=== PATIENT | female | born 1990 | race Caucasian/White ===

== ENCOUNTER 2017-02-07 15:14 | Emergency (ER) | payer MEDICAID ==
[~2017-02-07] VITALS: Ht 160 cm; Wt 83.0 kg
[2017-02-07] MEDS ORDERED: IBUPROFEN 600MG TABLET PO ONE (18:45)
[2017-02-07 19:12] LABS: CLARITY URINE CLEAR (CLEAR); COLOR URINE YELLOW (YELLOW); GLUCOSE URINE NEGATIVE (NEGATIVE); KETONES URINE NEGATIVE (NEGATIVE); LEUKOCYTE ESTERASE URINE NEGATIVE (NEGATIVE); NITRITE URINE NEGATIVE (NEGATIVE); OCCULT BLOOD URINE NEGATIVE (NEGATIVE); PH URINE 6.5 (4.5-8.0); PROTEIN URINE NEGATIVE (NEGATIVE); SPECIFIC GRAVITY URINE 1.009 (1.005-1.030); UROBILINOGEN URINE 0.2 E.U./dL (0.2-1.0)
[2017-02-07 19:14] LABS: BASOPHILS % 0.4 % (0.0-2.0); EOSINOPHILS % 1.3 % (0.0-5.0); HEMATOCRIT. 41.4 % (36.0-48.0); HEMOGLOBIN. 13.7 g/dL (12.0-16.0); LYMPHOCYTES % 24.8 % (20.0-50.0); MEAN CORPUSCULAR HEMOGLOBIN 26.4 pg (28.0-32.0); MEAN PLATELET VOLUME 8.7 fl (7.4-10.4); MONOCYTES % 4.7 % (2.0-8.0); NEUTROPHILS % 68.8 % (40.0-76.0); PLATELET 288 x1000/uL (130-400); RED BLOOD CELL COUNT 5.18 mill/uL (4.2-5.4); RED CELL DISTRIBUTION WIDTH 13.9 % (11.6-14.6)
[2017-02-07 19:18] LABS: CHLORIDE 105 mEq/L (98-107)
[2017-02-07 19:29] LABS: CARBON DIOXIDE 25 mEq/L (21-32)
[2017-02-07 20:23] VITALS: BP 116/68
== END 2017-02-07 20:28 | disposition home or self-care (01) ==
LOC: ER 15:31
DX: M54.5 Low back pain (principal); R10.11 Right upper quadrant pain; K76.0 Fatty (change of) liver, not elsewhere classified
CPT/HCPCS: 36415; 76705; 80053; 81003; 81025; 83690; 85025; 99285; Z7610

== ENCOUNTER 2020-01-15 17:07 | Emergency (ER) | payer SELFPAY ==
[~2020-01-15] VITALS: Ht 160 cm; Wt 100.0 kg
[2020-01-15] MEDS ORDERED: SODIUM CHLORIDE 0.9% 1,000 ML IV ONE (17:30)
[2020-01-15 18:15] LABS: BASOPHILS % 0.3 % (0.0-2.0); EOSINOPHILS % 0.1 % (0.0-5.0); HEMATOCRIT. 39.4 % (36.0-48.0); HEMOGLOBIN. 12.9 g/dL (12.0-16.0); LYMPHOCYTES % 35.6 % (20.0-50.0); MEAN CORPUSCULAR HEMOGLOBIN 25.5 pg (28.0-32.0); MEAN PLATELET VOLUME 8.8 fl (7.4-10.4); MONOCYTES % 9.5 % (2.0-8.0); NEUTROPHILS % 54.5 % (40.0-76.0); PLATELET 179 x1000/uL (130-400); RED BLOOD CELL COUNT 5.05 mill/uL (4.2-5.4); RED CELL DISTRIBUTION WIDTH 14.4 % (11.6-14.6)
[2020-01-15 18:26] LABS: CHLORIDE 104 mEq/L (98-107)
[2020-01-15 18:27] LABS: HCG SCREEN NEGATIVE
[2020-01-15] MEDS ORDERED: IOHEXOL-350 100 ML BOTTLE ONE (21:23)
[2020-01-15 21:35] VITALS: BP 132/75
== END 2020-01-15 22:00 | disposition home or self-care (01) ==
LOC: ER 17:07
DX: U07.1 COVID-19 (principal); J12.89 Other viral pneumonia
CPT/HCPCS: 36415; 71045; 71275; 80053; 84484; 84703; 85025; 85379; 93005; 96360; 99285; J7030; Q9967